=== PATIENT | male | born 1985 | race Caucasian/White ===

== ENCOUNTER 2017-04-07 13:45 | Emergency (ER) | payer OTHER ==
[2017-04-07 14:19] LABS: BASOPHILS % (AUTO) 0.8 %; EOSINOPHILS # (AUTO) 0.2 10^3/uL (0.0-0.7); EOSINOPHILS % (AUTO) 4.7 %; HCT - HEMATOCRIT 48.4 % (42.0-52.0); HGB - HEMOGLOBIN 17.3 g/dL (14.0-18.0); LYMPHOCYTES # (AUTO) 1.5 10^3/uL (1.5-3.5); LYMPHOCYTES % (AUTO) 29.8 %; MEAN CORPUSCULAR HGB CONC 35.8 g/dL (32.0-36.0); MEAN CORPUSCULAR VOLUME 97.9 fL (80.0-94.0); MEAN PLATELET VOLUME 8.6 fL (7.4-11.4); MONOCYTES # (AUTO) 0.6 10^3/uL (0.0-1.0); NEUTROPHILS # (AUTO) 2.5 10^3/uL (1.5-6.6); NEUTROPHILS % (AUTO) 51.7 %; NUCLEATED RED BLOOD CELLS AUTO 0.1 /100WBC; RED BLOOD COUNT 4.95 10^6/uL (4.70-6.10); RED CELL DISTRIBUTION WIDTH 12.5 % (12.0-15.0); UNCORRECTED WHITE BLOOD COUNT 4.9 x10^3/uL; WHITE BLOOD COUNT 4.9 x10^3/uL (4.8-10.8)
[2017-04-07 14:36] LABS: ALBUMIN/GLOBULIN RATIO 1.7 (1.0-2.2); BILIRUBIN,TOTAL 1.9 mg/dL (0.2-1.0); CALCIUM 9.6 mg/dL (8.5-10.3); CREATININE 1.1 mg/dL (0.6-1.2); POTASSIUM 3.8 mmol/L (3.5-5.0); TOTAL PROTEIN 7.5 g/dL (6.7-8.2)
[2017-04-07 14:41] LABS: BILIRUBIN,URINE NEGATIVE (NEGATIVE)
[2017-04-07 14:42] LABS: UA CHARGE (STRIP ONLY) YES; UR CULTURE IF IND NOT INDICATED
[2017-04-07] MEDS ORDERED: KETOROLAC 60 MG/2 ML VIAL IM STA (14:49)
[2017-04-07] MEDS ORDERED: KETOROLAC 60 MG/2 ML VIAL ONE (15:17)
--- NOTE | 2017-04-07 15:59 | CT Preliminary Report ---
Exam: CT KUB IMPRESSION: Small nonobstructing left intrarenal stones, otherwise unremarkable unenhanced CT of the abdomen and pelvis. [id number]
--- NOTE | 2017-04-07 16:01 | CT Report ---
EXAM: CT ABDOMEN AND PELVIS (CT KUB) EXAM DATE: 04/07/2017 03:34 PM. CLINICAL HISTORY: Right flank pain today. History of stones. COMPARISONS: None. TECHNIQUE: Routine axial helical CT imaging was performed through the abdomen and pelvis without IV c ontrast. Reconstructions: Coronal and sagittal. In accordance with CT protocol optimization, one or more of the following dose reduction techniques w ere utilized for this exam: automated exposure control, adjustment of mA and/or KV based on patient s ize, or use of iterative reconstructive technique. FINDINGS: Lung Bases: Unremarkable. Right Kidney/Ureter: No stones, hydronephrosis, or hydroureter. No perinephric fat stranding. Left Kidney/Ureter: Nonobstructing 1-2 mm lower pole intrarenal stones. No ureteral stones. No hydron ephrosis or hydroureter. No perinephric fat stranding. Other Solid Organs: Noncontrast images of the solid organs are grossly unremarkable. Gallbladder/Bile Ducts: Unremarkable. Peritoneal Cavity: No free fluid, free air or arden adenopathy. Bowel is grossly unremarkable. Normal appendix noted. Pelvic Organs: No bladder stones or wall thickening. Noncontrast images of the visualized pelvic orga ns are unremarkable. Vasculature: Unremarkable. Other: None. IMPRESSION: Small nonobstructing left intrarenal stones, otherwise unremarkable unenhanced CT of the abdomen and pelvis. [facility] Referring Provider Line: [phone] SITE ID: [id number]
--- NOTE | 2017-04-07 16:25 | ED Physician Documentation ---
PD HPI ABD PAIN - Stated complaint Stated Complaint: LOWER R BACK PX - Chief complaint Chief Complaint: Abd Pain - History obtained from History obtained from: Patient - History of Present Illness Timing - onset: Today Timing - duration: Hours Timing - details: Abrupt onset, Still present Quality: Cramping, Aching, Pain Location: Other (right flank/lumbar) Radiation: Right flank Improved by: No: Eating, Laying still Worsened by: No: Eating, Moving, Breathing, Palpation Associated symptoms: Nausea. No: Fever, Vomiting, Dysuria, Hematuria Similar symptoms before: Diagnosis (kidney stones on right 5 in the past.) Review of Systems Constitutional: denies: Fever, Chills Nose: denies: Rhinorrhea / runny nose, Congestion Throat: denies: Sore throat Cardiac: denies: Chest pain / pressure, Palpitations Respiratory: denies: Cough GI: reports: Nausea. denies: Abdominal Pain, Vomiting, Diarrhea : denies: Dysuria, Frequency, Discharge Skin: denies: Rash Musculoskeletal: reports: Back pain. denies: Neck pain, Extremity pain, Extremity swelling Neurologic: denies: Focal weakness, Numbness, Near syncope, Headache PD PAST MEDICAL HISTORY - Past Medical History Cardiovascular: Arrhythmia Respiratory: None Neuro: None Endocrine/Autoimmune: None : Kidney stones - Present Medications Home Medications: Ambulatory Orders Medication Instructions Recorded Confirmed Cetirizine [ZyrTEC] 1 tab PO DAILY 04/07/17 04/07/17 Docusate Sodium [Dss] 250 mg PO DAILY #20 capsule 04/07/17 Hydrocodone/Acetaminophen [Lorman 1 each PO Q6H PRN #20 tablet 04/07/17 5-325 Tablet] Naproxen [Naprosyn] 500 mg PO BID PRN #20 tablet 04/07/17 Omeprazole [PriLOSEC] 1 tab PO DAILY 04/07/17 04/07/17 diltiaZEM [Cardizem] 10 mg PO DAILY 04/07/17 04/07/17 - Allergies Allergies/Adverse Reactions: Allergies Allergy/AdvReac Type Severity Reaction Status Date / Time No Known Drug Allergies Allergy Verified 04/07/17 13:50 - Social History Does the pt smoke?: Yes Smoking Status: Current every day smoker Does the pt drink ETOH?: Yes ETOH Use: Beer Does the pt have substance abuse?: No - Immunizations Immunizations are current?: Yes PD ED PE NORMAL - Vitals Vital signs reviewed: Yes - General General: Alert and oriented X 3, Well developed/nourished, Other (appears in some pain, but able to rest on cart. He will be driving home and declines narcotic meds here so he can drive himself. ) - HEENT HEENT: Pharynx benign - Neck Neck: Supple, no meningeal sign, No adenopathy - Cardiac Cardiac: RRR, No murmur - Respiratory Respiratory: Clear bilaterally - Abdomen Abdomen: Normal bowel sounds, Soft, Non tender, Non distended, No organomegaly - Male Male : Deferred - Rectal Rectal: Deferred - Back Back: No spinal TTP, Other (right back with mild tenderness upper lumbar muscle. No rash nor sores. ) - Derm Derm: Normal color, Warm and dry, No rash - Extremities Extremities: No tenderness to palpate, Normal ROM s pain - Neuro Neuro: Alert and oriented X 3, No motor deficit, Normal speech Results - Vitals Vitals: Vital Signs - 24 hr 04/07/17 04/07/17 13:49 16:28 Temperature 36.6 C 37.1 C Heart Rate 85 63 Respiratory 18 17 Rate Blood Pressure 138/92 H 148/95 H O2 Saturation 99 96 Oxygen O2 Source Room air - Labs Labs: Laboratory Tests 04/07/17 04/07/17 04/07/17 14:00 14:07 14:07 WBC 4.9 RBC 4.95 Hgb 17.3 Hct 48.4 MCV 97.9 H MCH 35.0 H MCHC 35.8 RDW 12.5 Plt Count 164 MPV 8.6 Neut # 2.5 Lymph # 1.5 Isabella # 0.6 Eos # 0.2 Baso # 0.0 Absolute Nucleated RBC 0.00 Nucleated RBCs 0.1 Sodium 140 Potassium 3.8 Chloride 104 Carbon Dioxide 25 Anion Gap 11.0 BUN 14 Creatinine 1.1 Estimated GFR (MDRD) 78 L Glucose 116 H Calcium 9.6 Total Bilirubin 1.9 H AST 33 ALT 39 Alkaline Phosphatase 82 Total Protein 7.5 Albumin 4.7 Globulin 2.8 Albumin/Globulin Ratio 1.7 Lipase 62 H Urine Color YELLOW Urine Clarity CLEAR Urine pH 7.0 Ur Specific [place] 1.020 Urine Protein NEGATIVE Urine Glucose (UA) NEGATIVE Urine Ketones NEGATIVE Urine Occult Blood NEGATIVE Urine Nitrite NEGATIVE Urine Bilirubin NEGATIVE Urine Urobilinogen 1 (NORMAL) Ur Leukocyte Esterase NEGATIVE Ur Microscopic Review NOT INDICATED Urine Culture Comments NOT INDICATED - Rads (name of study) KUB CT Radiology: Prelim report reviewed (normal CT without stones. Normal appendix.), EMP read contemporaneously (no ureteral stones nor other acute process) PD MEDICAL DECISION MAKING - ED course Complexity details: considered differential (pain area is similar to his prior kidney stones, but none seen on CT. No other acute abnormal on CT. He is not tender in back. Pain is slightly positional/provocable with ROM though not significantly. Presume musculoskeletal for now. Recheck if not improved or if other symptoms such as fever, abd pain, rash, etc.), d/w patient Departure - Departure Disposition: 01 Home, Self Care Clinical Impression: Flank pain, acute Clinical Impression: (Ruled Out): Ureterolithiasis Condition: Stable Record reviewed to determine appropriate education?: Yes Instructions: ED Flank Pain Uncertain Cause Follow-Up: SUSIE ALMONTE MD [Primary Care Provider] - Prescriptions: Docusate Sodium [Dss] 250 mg PO DAILY #20 capsule Naproxen [Naprosyn] 500 mg PO BID PRN #20 tablet PRN Reason: Pain Hydrocodone/Acetaminophen [Lorman 5-325 Tablet] 1 each PO Q6H PRN #20 tablet PRN Reason: Pain Comments: No signs of kidney stones. Presume muscular pain for now. Naproxen twice daily as needed and add Tylenol or hydrocodone as needed for pain. Stool softener daily so meds do not constipate. Limited lifting/ bending for several days. Forms: Activity restrictions Discharge Date/Time: 04/07/17 16:32
[2017-04-07 16:29] VITALS: BP 148/95
== END 2017-04-07 16:32 | disposition home or self-care (01) ==
LOC: ED 13:45
DX: R10.30 Lower abdominal pain, unspecified (principal); M54.5 Low back pain; Z87.442 Personal history of urinary calculi; F17.200 Nicotine dependence, unspecified, uncomplicated
CPT/HCPCS: 36415; 74176; 80053; 81001; 81003; 83690; 85025; 87086; 96372; 99283

== ENCOUNTER 2017-09-29 13:17 | Outpatient (CLI) | payer OTHER ==
[2017-09-29 17:49] VITALS: BP 142/92
--- NOTE | 2017-09-29 18:26 | CARDIAC PROCEDURE NOTE ---
DATE OF SERVICE: 09/29/2017 PCP: POLY Leavitt PROCEDURES: Cardiac Exercise Tolerance Test CLINICAL HISTORY: 31 year old man without known coronary artery disease. SYMPTOMS: Symptomatic PVCs. CARDIAC RISK FACTORS: None. PRIOR PROCEDURES : None known. RESTING VITAL SIGNS: Blood pressure 142/92, heart rate 79, height 69 inches, weight 210 pounds. The patient's identity and date verified. Consent signed. PROCEDURE AND FINDINGS: The patient performed treadmill exercise, using a Nnamdi protocol, completing 13 minutes, 9 seconds, and completing an estimated workload of 15.1 metabolic equivalents(METS). Maximal blood pressure was 174/84 with a heart rate of 197 or 105% of maximum predicted heart rate for age. The blood pressure response to exercise was within normal limits. The patient stopped because his legs were tiring and he was getting short of breath. The resting ECG demonstrated normal sinus rhythm with occasional PVCs. Maximal ST segment depression was 0. There was occasional PVC ectopy at rest. PVCs stopped after the first minute of exercise, reoccurring during the recovery phase. FINAL IMPRESSION: 1. Negative stress electrocardiogram for ischemia by electrocardiographic criteria. 2. Negative stress test clinically for angina. 3. Occasional monomorphic PVCs at rest and through the first minute of exercise. No PVCs were then noted until 1 minute, 27 seconds into recovery. 4. [place] [employer] functional class 1. The patient achieved predicted exercise time. JOB #: [id number] EXT JOB #:[id number] MTDEmma
--- NOTE | 2017-10-03 10:21 | XRAY Report ---
CARDIOVASCULAR TREADMILL TEST: There was no imaging performed for this exam. Procedure notes and results available in the EMR. BLUE
== END 2017-09-29 13:18 | disposition home or self-care (01) ==
LOC: DI 13:17
PROVIDERS: ATTEND Student in an Organized Health Care Education/Training Program
DX: I49.3 Ventricular premature depolarization (principal)
CPT/HCPCS: 93017

== ENCOUNTER 2018-05-09 09:31 | Emergency (ER) | payer OTHER ==
[2018-05-09 09:40] VITALS: BP 140/89
[2018-05-09] MEDS ORDERED: LIDOCAINE TOPICAL 4% 50 ML BOTTLE MM STA (11:00)
--- NOTE | 2018-05-09 11:02 | ED Physician Documentation ---
History of Present Illness - Stated complaint Stated Complaint: EAR PX - Chief complaint Chief Complaint: Heent - Additonal information Additional information: hx from pt 32 male AD [place] to ED with ear pain congestion / allergies no fever home meds = apap Review of Systems Constitutional: denies: Fever Ears: reports: Ear pain Nose: reports: Congestion Immunocompromised: denies: Immunocompromised PD PAST MEDICAL HISTORY - Past Medical History Past Medical History: Yes Cardiovascular: Arrhythmia Respiratory: None Endocrine/Autoimmune: None : Kidney stones - Past Surgical History Past Surgical History: Yes - Present Medications Home Medications: Ambulatory Orders Medication Instructions Recorded Confirmed Cetirizine [ZyrTEC] 1 tab PO DAILY 04/07/17 04/07/17 Omeprazole [PriLOSEC] 1 tab PO DAILY 04/07/17 04/07/17 diltiaZEM [Cardizem] 10 mg PO DAILY 04/07/17 04/07/17 Amoxicillin 500 mg PO Q8H #30 capsule 05/09/18 Neomycin/Polymyx/Hc Otic Drops 4 drops OT Q6H 7 Days #1 bottle 05/09/18 [Cortisporin Ear Susp] Oxymetazoline HCl [Afrin] 2 spray NS BID PRN #1 bottle 05/09/18 - Allergies Allergies/Adverse Reactions: Allergies Allergy/AdvReac Type Severity Reaction Status Date / Time No Known Drug Allergies Allergy Verified 05/09/18 09:40 - Social History Does the pt smoke?: Yes Smoking Status: Current every day smoker Does the pt drink ETOH?: Yes Does the pt have substance abuse?: No - Immunizations Immunizations are current?: Yes PD ED PE NORMAL - Vitals Vital signs reviewed: Yes - HEENT HEENT: No: Ears normal (L AOE - canalswollen red flaky TTP unable to vis TM, R canal less swollen, also red, and TM dull and erythematous with cloudy fluid, no mastoid redness or swelling) - Neck Neck: Supple, no meningeal sign - Cardiac Cardiac: RRR - Respiratory Respiratory: No respiratory distress, Clear bilaterally - Neuro Neuro: Alert and oriented X 3 Results - Vitals Vitals: Vital Signs - 24 hr 05/09/18 09:39 Temperature 36.6 C Heart Rate 82 Respiratory 18 Rate Blood Pressure 140/89 H O2 Saturation 97 Oxygen O2 Source Room air PD MEDICAL DECISION MAKING - ED course ED course: pt received MSE identified acute otitis externa and media given TM involvement will rx oral meds as well as cortisporin no life limb threatening issue requiring admit surgery etc identified and feel pt stable and safe to dc home - Sepsis Event Vital Signs: Vital Signs - 24 hr 05/09/18 09:39 Temperature 36.6 C Heart Rate 82 Respiratory 18 Rate Blood Pressure 140/89 H O2 Saturation 97 Oxygen O2 Source Room air Departure - Departure Disposition: Home, Self Care Clinical Impression: Otitis media Qualifiers: Otitis media type: suppurative Chronicity: acute Laterality: bilateral Recurrence: not specified as recurrent Spontaneous tympanic membrane rupture: without spontaneous rupture Qualified Code(s): H66.003 - Acute suppurative otitis media without spontaneous rupture of ear drum, bilateral Otitis externa Qualifiers: Otitis externa type: unspecified type Chronicity: acute Laterality: bilateral Qualified Code(s): H60.503 - Unspecified acute noninfective otitis externa, bilateral Condition: Good Instructions: ED Otitis Externa, ED Otitis Media Acute Adult Follow-Up: SUSIE ALMONTE MD [Primary Care Provider] - Prescriptions: Amoxicillin 500 mg PO Q8H #30 capsule Neomycin/Polymyx/Hc Otic Drops [Cortisporin Ear Susp] 4 drops OT Q6H 7 Days #1 bottle Oxymetazoline HCl [Afrin] 2 spray NS BID PRN #1 bottle PRN Reason: nasal sinus ear congestion
== END 2018-05-09 11:16 | disposition home or self-care (01) ==
LOC: ED 09:31
DX: H66.003 Acute suppurative otitis media without spontaneous rupture of ear drum, bilateral (principal); H60.503 Unspecified acute noninfective otitis externa, bilateral; F17.200 Nicotine dependence, unspecified, uncomplicated
CPT/HCPCS: 99283

== ENCOUNTER 2019-07-09 16:01 | Emergency (ER) | payer OTHER ==
[2019-07-09 16:07] VITALS: BP 158/100
--- NOTE | 2019-07-09 16:56 | ED Physician Documentation ---
PD HPI SKIN - Stated complaint Stated Complaint: BUMP ON FACE - Chief complaint Chief Complaint: Wound - History obtained from History obtained from: Patient - History of Present Illness Timing - onset: How many days ago (few) Timing - duration: Days (few) Timing - details: Gradual onset Location: Face (right zoroastrianism area, tender enlarging lump with some redness for several days.) Quality / character: Painful, Raised, Swelling Associated symptoms: No: Fever, Myalgias Similar symptoms before: Has not had sx before Review of Systems Constitutional: denies: Fever, Chills Skin: reports: Lesions Neurologic: denies: Focal weakness, Numbness PD PAST MEDICAL HISTORY - Past Medical History Cardiovascular: Arrhythmia Respiratory: None Endocrine/Autoimmune: None : Kidney stones - Past Surgical History Past Surgical History: Yes - Present Medications Home Medications: Ambulatory Orders Medication Instructions Recorded Confirmed Cetirizine [ZyrTEC] 1 tab PO DAILY 04/07/17 04/07/17 Omeprazole [PriLOSEC] 1 tab PO DAILY 04/07/17 04/07/17 diltiaZEM [Cardizem] 10 mg PO DAILY 04/07/17 04/07/17 Amoxicillin 500 mg PO Q8H #30 capsule 05/09/18 Neomycin/Polymyx/Hc Otic Drops 4 drops OT Q6H 7 Days #1 bottle 05/09/18 [Cortisporin Ear Susp] Oxymetazoline HCl [Afrin] 2 spray NS BID PRN #1 bottle 05/09/18 Doxycycline Hyclate 100 mg PO BID #10 capsule 07/09/19 - Allergies Allergies/Adverse Reactions: Allergies Allergy/AdvReac Type Severity Reaction Status Date / Time No Known Drug Allergies Allergy Verified 07/09/19 16:05 - Social History Does the pt smoke?: Yes Smoking Status: Current every day smoker Does the pt drink ETOH?: Yes Does the pt have substance abuse?: No - Immunizations Immunizations are current?: Yes PD ED PE NORMAL - Vitals Vital signs reviewed: Yes - General General: Alert and oriented X 3, No acute distress, Well developed/nourished - Neck Neck: Supple, no meningeal sign, No adenopathy - Derm Derm: Normal color, Warm and dry, Other (right zoroastrianism with rounded raised, tender, slightly red lump about 1.5 cm diameter and about 1 cm raised. Fluctuant. Not overlying the zoroastrianism artery pulse. ) Results - Vitals Vitals: Oxygen O2 Source Room air Procedures - Abscess I&D (location) right zoroastrianism Preparation: Confirmed with ultrasound, Lidocaine 1%, With epi Incision: Incised with scalpel, Purulent drainage, Irrigated. No: Packed, Culture obtained Other: Pt tolerated well, Dressing applied, Antibiotic prescribed PD MEDICAL DECISION MAKING - ED course Complexity details: considered differential, d/w patient Departure - Departure Disposition: 01 Home, Self Care Clinical Impression: Facial abscess Condition: Stable Record reviewed to determine appropriate education?: Yes Instructions: ED Abscess IandD Follow-Up: SUSIE ALMONTE MD [Primary Care Provider] - Prescriptions: Doxycycline Hyclate 100 mg PO BID #10 capsule Comments: Warm moist compresses to the abscess area to 3 times a day to promote drainage and good blood flow to the area. Ibuprofen or naproxen 2-3 times daily as needed for pain. Add Tylenol if needed. Doxycycline antibiotic as there is still seems to be some infection in the tissu es around the area that should improve it over the next several days. The lump itself may take a week or 2 to fully soften and dissipate but it should not be tender or red over the next few days. Discharge Date/Time: 07/09/19 18:07
[2019-07-09] MEDS ORDERED: DOXYCYCLINE 100 MG TABLET PO STA (17:55)
== END 2019-07-09 18:07 | disposition home or self-care (01) ==
LOC: ED 16:01
DX: L02.01 Cutaneous abscess of face (principal); F17.200 Nicotine dependence, unspecified, uncomplicated
CPT/HCPCS: 10060; 99282; 99283; A9270